=== PATIENT | male | born 1945 | race Caucasian/White ===

== ENCOUNTER 2022-03-14 00:51 | Day surgery (SDC) | payer MEDICARE, OTHER, SELFPAY ==
[2022-03-05 12:37] VITALS: BMI 27.5
[2022-03-14 11:22] VITALS: BP 172/69; PULSE 84; RESP 16; TEMP 36.6; O2SAT 98
--- NOTE | 2022-03-14 11:26 | WPDGICN ---
Assessment and Plan Assessment and plan (1) Colon cancer screening: Code(s): Z12.11 - Encounter for screening for malignant neoplasm of colon Status: Acute Assessment and Plan: Patient presents today for neoplasia screening colonoscopy. He appears to be at average risk for colon polyps. Further recommendations may be given after endoscopy. GI Consult Note Consult date/time: 03/14/22 11:26 HPI: Evert Wilburn is a 76 year old male Presents for screening colonoscopy. Patient's current weight appetite bowel movements are normal. He denies abdominal pain. He has had no bleeding. Family history is noncontributory. Patient's last colonoscopy 11 years ago was unremarkable. He presents today for neoplasia screening. Review of Systems Review of Systems: All systems reviewed & are unremarkable except as noted in HPI and below PMFSH Past Medical History Medical History Hyperlipidemia Hypertension Incontinence Prostate cancer Surgical History Surgical History History of laparoscopic cholecystectomy History of radical prostatectomy History of tonsillectomy Family History Family History Father Diabetes mellitus Malignant neoplasm of prostate Family history of malignant neoplasm of bone Mother Hypertension Family history of lung cancer Family history of throat cancer Social History Social History Smoking status: Never smoker Second hand tobacco smoke exposure: No Alcohol intake: never Substance use: never Substance use type: does not use Living arrangements: with family Gender identity (if verbalized by the patient): Male Spiritual care concerns: No Meds Home Medications and Allergies Home Medications Medication Instructions Recorded Confirmed Type omega 3,6,9 combination no.7 92 mg 92 mg PO DAILY 11/17/19 03/14/22 History (43 mg-22 [id number]) chew tablet cinnamon bark 500 mg capsule 500 mg PO DAILY 05/24/20 03/14/22 History multivitamin 1 tablet PO DAILY 05/24/20 03/14/22 History atorvastatin 20 mg tablet 20 mg PO DAILY 11/21/20 03/14/22 History amlodipine 5 mg tablet 5 mg PO DAILY #90 tablet 11/22/21 03/14/22 Rx lisinopril 20 2 tablet PO DAILY #180 tablet 11/22/21 03/14/22 Rx mg-hydrochlorothiazide 12.5 mg tablet aspirin 81 mg PO DAILY 03/05/22 03/14/22 History Allergies Allergy/AdvReac Type Severity Reaction Status Date / Time No Known Allergies Allergy Verified 03/14/22 11:19 Vital Signs Vital Signs - 24 hr 03/14/22 11:22 Temperature 97.9 F Pulse Rate 84 Respiratory Rate 16 Blood Pressure 172/69 H Pulse Oximetry 98 Exam Narrative: Physical exam reveals patient be alert. Vital signs stable. HEENT exam is unremarkable. Patient is anicteric. Lungs are clear to auscultation and percussion. Heart is without murmur or extra sounds. Abdominal exam bowel sounds are present soft nontender with no organomegaly. Digital external rectal exam is normal.
[2022-03-14] MEDS: LACTATED RINGERS 1,000 ML 150 ML IV CONT (11:31)
--- NOTE | 2022-03-14 11:49 | WPDANESEPPF ---
Anes - Initial Pre Proc Eval Procedure: Operation Date: 03/14/22 12:30 Proposed Procedures p Screening Colonoscopy - Lamberto Gibson MD Date/Time: 03/14/22 11:49 Surgeon: Lamberto Gibson MD Pre Op Diagnosis: neoplasm screening Patient Data Age: 76 Gender: M Height: 1.78 m Weight: 87.2 kg Last Vital Signs Temp 36.6 C 03/14/22 11:22 Pulse 84 03/14/22 11:22 Resp 16 03/14/22 11:22 BP 172/69 H 03/14/22 11:22 Pulse Ox 98 03/14/22 11:22 Allergies Allergy/AdvReac Type Severity Reaction Status Date / Time No Known Allergies Allergy Verified 03/14/22 11:19 Home Medications Medication Instructions Recorded Confirmed Type omega 3,6,9 combination no.7 92 mg 92 mg PO DAILY 11/17/19 03/14/22 History (43 mg-22 [id number]) chew tablet cinnamon bark 500 mg capsule 500 mg PO DAILY 05/24/20 03/14/22 History multivitamin 1 tablet PO DAILY 05/24/20 03/14/22 History atorvastatin 20 mg tablet 20 mg PO DAILY 11/21/20 03/14/22 History amlodipine 5 mg tablet 5 mg PO DAILY #90 tablet 11/22/21 03/14/22 Rx lisinopril 20 2 tablet PO DAILY #180 tablet 11/22/21 03/14/22 Rx mg-hydrochlorothiazide 12.5 mg tablet aspirin 81 mg PO DAILY 03/05/22 03/14/22 History Patient hx anesthesia problems: none Family hx anesthesia problems: none Results Review: All pre-operative results and documents have been reviewed as part of the pre-operative evaluation. [facility] Past Medical History Medical History Hyperlipidemia Hypertension Incontinence Prostate cancer Surgical History Surgical History History of laparoscopic cholecystectomy History of radical prostatectomy History of tonsillectomy Family History Family History Father Diabetes mellitus Malignant neoplasm of prostate Family history of malignant neoplasm of bone Mother Hypertension Family history of lung cancer Family history of throat cancer Social History Social History Smoking status: Never smoker Second hand tobacco smoke exposure: No Alcohol intake: never Substance use: never Substance use type: does not use Living arrangements: with family Gender identity (if verbalized by the patient): Male Spiritual care concerns: No Anes - Eval Final PreProcedure Day of Procedure 03/14/22 11:49 Patient weight: overweight Heart: regular rate and rhythm Lungs: clear to auscultation Airway: Mallampati scale class II Neurological: alert and oriented Last oral intake: >/= 8 hours ASA classification: III Emergent: no Anesthetic plan: proceed Anesthesia type and monitoring: general GIVS and standard monitoring Results Review: All pre-operative results and documents have been reviewed as part of the pre-operative evaluation. Informed Consent: The patient's anesthetic plan and its attendant risks and benefits were discussed with the patient/family/POA. Questions were solicited and answers provided to the satisfaction of the patient/family/POA.
[2022-03-14 12:36] VITALS: BP 83/47; PULSE 55; RESP 20; O2SAT 97
[2022-03-14 12:46] VITALS: BP 120/76; PULSE 58; RESP 20; O2SAT 100
[2022-03-14 12:56] VITALS: BP 127/76; PULSE 58; RESP 20; O2SAT 100
== END 2022-03-14 13:13 | disposition home or self-care (01) ==
PROVIDERS: PCP Family Medicine; Visit Provider Internal Medicine Gastroenterology
PROC: 0DJD8ZZ Inspection of Lower Intestinal Tract, Via Natural or Artificial Opening Endoscopic (ICD-10-PCS; CPT 45378; principal; 2022-03-14 12:30)
DX: Z12.11 Encounter for screening for malignant neoplasm of colon (principal); K64.8 Other hemorrhoids; Z79.82 Long term (current) use of aspirin; I10 Essential (primary) hypertension; E78.5 Hyperlipidemia, unspecified; R32 Unspecified urinary incontinence; Z85.46 Personal history of malignant neoplasm of prostate; Z90.49 Acquired absence of other specified parts of digestive tract
CPT/HCPCS: G0121; J2001; J2704; J7120